=== PATIENT | female | born 1970 | race Two or more races ===

== ENCOUNTER 2024-02-18 15:21 | Emergency (ER) | payer OTHER, SELFPAY ==
[2024-02-18 15:25] VITALS: BP 114/72; BMI 26.3
[2024-02-18 16:13] LABS: Hematocrit 36.9 % (37.0-47.0); Hemoglobin 12.9 g/dL (12.0-16.0); Mean Corpuscular Hgb 28.8 pg (27.0-31.0); Mean Corpuscular Volume 82.4 fL (81.0-99.0); Mean Platelet Volume 10.3 fL (7.4-10.4); Platelet Count 296 10^3/uL (130-400); Red Blood Cell Count 4.48 10^6/uL (4.20-5.40); Red Cell Dist. Width 13.6 % (11.5-14.5); White Blood Cell Count 3.9 10^3/uL (4.8-10.8)
[2024-02-18 16:13] LABS: HCG, Serum Qualitative Screen Negative
[2024-02-18 16:17] LABS: ALT (SGPT) 23 U/L (0-35); AST (SGOT) 24 U/L (14-36); Albumin 4.4 g/dl (3.5-5.0); Alkaline Phosphatase 74 U/L (38-126); Blood Urea Nitrogen 19 mg/dl (7-17); Calcium 9.5 mg/dl (8.4-10.2); Carbon Dioxide 24 mmol/L (22-30); Chloride 106 mmol/L (98-107); Estimated Creatinine Clearance 99 ml/min; Glucose 97 mg/dl (70-99); Potassium 4.1 mmol/L (3.5-5.1); Sodium 137 mmol/L (135-145); Total Bilirubin 0.3 mg/dl (0.2-1.3); Total Protein 6.9 g/dl (6.3-8.2); eGFR > 60.00
[2024-02-18 16:27] LABS: % Basophils 1.3 % (0-2); % Eosinophils 3.8 % (0-6); % Immature Granulocytes 0.3 % (0-0.5); % Lymphocytes 51.8 % (20.5-51.1); % Monocytes 8.7 % (1.7-9.3); % Neutrophils 34.1 % (42.2-75.2); Absolute Basophils 0.1 10^3/uL (0-0.2); Absolute Eosinophils 0.2 10^3/uL (0-0.7); Absolute Monocytes 0.3 10^3/uL (0.1-0.6); Absolute Neutrophils 1.3 10^3/uL (1.4-6.5); Nucleated Red Blood Cells % 0 %
--- NOTE | 2024-02-18 17:32 | ED.GENMED ---
History of Present Illness
General
Chief Complaint: Vaginal Bleeding
Source: patient and spouse
Time Seen by Provider: 02/18/24 17:18
History of Present Illness
History of Present Illness:
This patient is a 53-year-old female presents emergency department with vaginal bleeding that started on Tuesday and continues although much less. She is needed just 2 tampons today to manage the bleeding. She denies associated dizziness, chest
pain, dyspnea, clots, nausea, vomiting, fever, chills. She does note mild lower abdominal cramping which is manageable. Patient is concerned because there is a family history of a fibrosarcoma. She is postmenopausal.
Past History
Past History
ED Past Medical History: None
ED Past Surgical History: None
Social History
Tobacco: Non-smoker
Alcohol: None
Drug: None
Personal:
Living: with family
Phy Exam
Physical Exam
Physical Exam:
GENERAL: Alert , in no apparent distress
EYE: pupils equal and reactive
NECK: Supple, no significant adenopathy.
ENT: o/p clr, mmm.
CARDIAC: Regular rate and rhythm .
LUNGS: Clear breath sounds bilaterally, no acute respiratory distress, no wheezes/rales/rhonchi
ABDOMEN: Soft, without focal tenderness, no r/g, no cvat
NEUROLOGICAL: Alert and oriented, no focal neuro deficits
SKIN: Warm and dry, skin intact.
MUSCULOSKELETAL: No edema, well perfused.
PSYCH: Normal and appropriate interaction.
Course
Orders/Labs/Results
Orders:
Orders
02/18/24 15:29
Electrocardiogram (*1) Urgent
Reason for Study: Chest Pain
EKG- Treatment ONCE
Test Result ONCE
02/18/24 15:45
Complete Blood Count/With Diff Urgent
02/18/24 15:46
Comprehensive Metabolic Panel Urgent
HCG, Serum Qualitative Screen Urgent
Comment: Notify provider if positive test present
02/18/24 17:18
US Pelvis W Transvag Combined Urgent
Reason For Exam: vag bleeding
02/18/24 17:32
0.9% Sodium Chloride 500 ml [Nss] 500 ml IV BOLUS
02/18/24 19:00
0.9% Sodium Chloride 500 ml [Nss] 500 ml IV BOLUS
Abnormal Lab Results
02/18/24 02/18/24
15:45 15:46
WBC 3.9 L 10^3/uL
(4.8-10.8)
Hct 36.9 L %
(37.0-47.0)
Absolute Neuts (auto) 1.3 L 10^3/uL
(1.4-6.5)
Neutrophils % 34.1 L %
(42.2-75.2)
Lymphocytes % 51.8 H %
(20.5-51.1)
BUN 19 H mg/dl
(7-17)
02/18/24 15:45
02/18/24 15:46
Vital Signs
Initial and Last Documented VS:
Initial Vital Signs
Temp Pulse Resp BP Pulse Ox
98 F 72 16 114/72 97
02/18/24 15:25 02/18/24 15:25 02/18/24 15:25 02/18/24 15:25 02/18/24 15:25
Last Documented Vital Signs
Temp Pulse Resp BP Pulse Ox
98 F 61 16 107/75 99
02/18/24 15:25 02/18/24 18:07 02/18/24 15:25 02/18/24 18:07 02/18/24 18:07
*Critical Care Note
Total Time (30-74mins, 75-104mins- exclusive of procedures): Not Applicable
Update Note
Update Note:
Patient presents to the Emergency Department with __vaginal bleeding
Number and Complexity of Problems Addressed at the Encounter
� Chronic conditions affecting care:
� Acute Exacerbation and/or Progression of Chronic Illness:
� Differential Diagnosis includes: But not limited to fibroid, carcinoma, polyp, etc.
Amount and/or Complexity of Data to be Reviewed and Analyzed
� I performed an independent evaluation of and my interpretation is:
EKG:
CT:
Xrays:
Laboratory Studies:generally unremkarable, hgb wnl
us rads read The following represents a composite report of the transabdominal and transvaginal sonographic examination of the pelvis.
The uterus measures 10.0 x 4.7 x 5.3 cm. The uterus has a homogeneous echotexture without focal mass. Endometrial stripe is within normal limits for patient's age and measures 4.8 mm maximal thickness. Fluid present within the endometrium. Nabothian
cysts noted.
The right ovary measures 2.8 x 1.4 x 2.1 cm and is within normal limits.
The left ovary measures 2.3 x 1.3 x 1.9 cm and contains a simple cyst measuring up to 1.9 cm, well delineated.
Given the patient's symptoms, color Doppler and duplex interrogation was performed demonstrating arterial and venous flow to both ovaries.
Urinary bladder shows no gross abnormality. There is no free fluid or suspicious adnexal mass.
Other:
� Review of other/old records reveals:
� Clinical information was obtained by an independent historian: who is bedside and serving as bridge worker apprentice at her request. He does note that 3 years ago she had a CT and an other country that showed a 'hypertrophic
endometrium', but he does not have copies of this.
� Prescriptions/Medications Considered but not given:
� Further testing considered but not performed:
Risk of Complications and/or Morbidity or Mortality of Patient Management
� Social determinants of health affecting care:
� Discussion with other providers (PCP, Hospitalists, Consultants, etc):
� Escalation of care including admission/observation vs risk of discharge considered:pt stable, no active bleeding, no pain, w/u unremarkable. D/w pt import of f/u and reasons to rted.
ED Attending Note
-
Portions of this chart may have been created with voice recognition software.� Occasional wrong word or��sound alike� substitutions may have occurred due to the inherent limitations of voice recognition software.
Discharge Plan
Departure
Patient Disposition: Home (Routine Discharge)
Date of Disposition: 02/18/24
Time of Disposition: 20:56
Patient with high blood pressure during this ER visit?: No
Condition: Good
Discharge Problem:
Vaginal bleeding
Instructions: Bleeding After Menopause
Prescriptions:
No Action
No Current Medications
0
Referrals:
Preeti Taylor MD [Active] - Next open appointment
UNKNOWN - PT DOES,NOT KNOW [Family Provider] -
Activity Restrictions/Additional Instructions:
PLEASE SEE THE SWIM COACH DOCTOR IN CLOSE FOLLOW UP. IF YOU DEVELOP DIZZINESS, CHEST PAIN, TROUBLE BREATHING, CONTINUED BLEEDING, FEVER, VOMITING, ABDOMINAL PAIN, OR OTHER WORRISOME SIGNS, GO TO THE ER IMMEDIATELY!
Interventions
Interventions:
*Risk Screen - Suicide Last Done: 02/18/24 15:25
*Neglect/Abuse Screening Last Done: 02/18/24 15:25
ED- Fall Risk Assessment Last Done: 02/18/24 15:25
*ED COVID-19 Vaccine History Last Done: 02/18/24 15:25
Discharge Date and Time
Print Language: INDONESIAN
[2024-02-18] MEDS: NSS 500 IV ×2 (18:06→19:00)
[2024-02-18 18:07] VITALS: BP 107/75
[2024-02-18 21:27] VITALS: BP 116/73
== END 2024-02-18 21:29 | disposition home or self-care (01) ==
LOC: EMR 15:21
PROVIDERS: Student in an Organized Health Care Education/Training Program; EMERGENCY PHYSICIAN Emergency Medicine
DX: N93.9 Abnormal uterine and vaginal bleeding, unspecified (principal)
CPT/HCPCS: 99284; 76830; 76856; 80053; 84703; 85025